=== PATIENT | female | born 1990 | race Caucasian/White ===

== ENCOUNTER 2017-05-08 12:50 | Inpatient (IN) | payer MEDICAID ==
[~2017-05-08] VITALS: Ht 160 cm; Wt 64.9 kg
[2017-05-08] MEDS ORDERED: LACTATED RINGERS 1,000 ML IV SCH (13:55)
[2017-05-08] MEDS ORDERED: DEXT 5%/LR + PITOCIN 20UNITS/L 1,000 ML IV SCH (13:55)
[2017-05-08] MEDS ORDERED: METHYLERGONOVINE MALEATE 0.2 MG/ML IM PRN (14:00)
[2017-05-08] MEDS ORDERED: CARBOPROST TROMETHAMINE 250 MCG/ML AMPUL IM PRN (14:00)
[2017-05-08 14:25] LABS: BASOPHILS % 0.7 % (0.0-2.0); EOSINOPHILS % 0.5 % (0.0-5.0); HEMATOCRIT. 42.2 % (36.0-48.0); HEMOGLOBIN. 14.2 g/dL (12.0-16.0); LYMPHOCYTES % 26.9 % (20.0-50.0); MEAN CORPUSCULAR HEMOGLOBIN 27.7 pg (28.0-32.0); MEAN CORPUSCULAR VOLUME 82.3 fL (81.0-99.0); MEAN PLATELET VOLUME 11.1 fl (7.4-10.4); MONOCYTES % 7.2 % (2.0-8.0); NEUTROPHILS % 64.7 % (40.0-76.0); PLATELET 234 x1000/uL (130-400); RED BLOOD CELL COUNT 5.13 mill/uL (4.2-5.4); RED CELL DISTRIBUTION WIDTH 14.4 % (11.6-14.6)
[2017-05-08 14:25] LABS: CLARITY URINE CLEAR (CLEAR); COLOR URINE YELLOW (YELLOW); KETONES URINE NEGATIVE (NEGATIVE); LEUKOCYTE ESTERASE URINE NEGATIVE (NEGATIVE); NITRITE URINE NEGATIVE (NEGATIVE); OCCULT BLOOD URINE NEGATIVE (NEGATIVE); PH URINE 6.5 (4.5-8.0); PROTEIN URINE NEGATIVE (NEGATIVE); SPECIFIC GRAVITY URINE 1.009 (1.005-1.030); UROBILINOGEN URINE 0.2 E.U./dL (0.2-1.0)
[2017-05-08 14:32] LABS: PARTIAL THROMBOPLASTIN TIME 28.4 sec (23.4-31.0)
[2017-05-08 15:03] LABS: *AMPHETAMINES SCREEN URINE NEGATIVE (NEGATIVE); *BARBITURATES SCREEN URINE NEGATIVE (NEGATIVE); *BENZODIAZEPINES SCREEN URINE NEGATIVE (NEGATIVE); *COCAINE SCREEN URINE NEGATIVE (NEGATIVE); CANNABINOID URINE SCREEN NEGATIVE (NEGATIVE); METHADONE URINE SCREEN NEGATIVE (NEGATIVE); OPIATES URINE SCREEN NEGATIVE (NEGATIVE); PHENCYCLIDINE URINE SCREEN NEGATIVE (NEGATIVE)
[2017-05-08 15:21] LABS: HEPATITIS B SURFACE ANTIGEN NEGATIVE
[2017-05-08 15:25] LABS: RUBELLA IGG > 500.0 IU/mL (4.99-10)
[2017-05-08] MEDS: LACTATED RINGERS 1,000 ML IV SCH ×2 (15:30→18:38)
[2017-05-08] MEDS ORDERED: MORPHINE SULFATE/PF 1MG/ML 10ML AMP ONE (19:25)
[2017-05-08] MEDS ORDERED: GLYCOPYRROLATE 0.2 MG/ML 2ML VIAL ONE (19:46)
[2017-05-08] MEDS ORDERED: ONDANSETRON HCL 4MG/2ML VIAL ONE (19:46)
[2017-05-08] MEDS ORDERED: EPHEDRINE SULFATE 50MG/ML VIAL ONE (20:10)
[2017-05-08] MEDS ORDERED: CEFAZOLIN SODIUM 1000MG/VIAL ONE (20:10)
[2017-05-08] MEDS ORDERED: SODIUM CHLORIDE 0.9% 10ML VIAL ONE (20:10)
[2017-05-08] MEDS ORDERED: OXYTOCIN 10 UNITS/ML 1ML ONE (20:10)
[2017-05-08] MEDS ORDERED: KETOROLAC 30MG/ML VIAL IV PRN (20:15)
[2017-05-08] MEDS ORDERED: ONDANSETRON HCL 4MG/2ML VIAL IV PRN (20:15)
[2017-05-08] MEDS ORDERED: MEPERIDINE HCL/PF 25MG/ML CPJ IV PRN (20:15)
[2017-05-08] MEDS ORDERED: IBUPROFEN 800MG TABLET PO PRN (20:15)
[2017-05-08] MEDS ORDERED: HYDROMORPHONE HCL/PF 2MG/ML CPJ IM PRN (20:15)
[2017-05-08] MEDS ORDERED: RHO(D) IMMUNE GLOBULIN 300 MCG/SYR IM PRN (20:15)
[2017-05-08] MEDS ORDERED: BISACODYL 10MG SUPP PR PRN (20:15)
[2017-05-08] MEDS ORDERED: LABETALOL 5MG/ML SYR 20 MG/4 ML SYRINGE IV PRN (20:15)
[2017-05-08] MEDS ORDERED: HYDROMORPHONE HCL/PF 2MG/ML CPJ IV PRN (20:15)
[2017-05-08] MEDS: DEXT 5%/LR + PITOCIN 20UNITS/L 1,000 ML IV SCH (20:54)
[2017-05-08 23:45] VITALS: BP 96/97
[2017-05-08 23:46] VITALS: BP 126/80
[2017-05-09 00:15] VITALS: BP_SYST 123; BP_SYST 129; BP_DIAS 73; BP_DIAS 74
[2017-05-09 00:45] VITALS: BP 129/74
[2017-05-09] MEDS: DEXT 5%/LR + PITOCIN 20UNITS/L 1,000 ML IV SCH (01:39)
[2017-05-09 01:45] VITALS: BP 115/69
[2017-05-09 09:00] VITALS: BP 99/66
[2017-05-09] MEDS: LACTATED RINGERS 1,000 ML IV SCH (09:13)
[2017-05-09 09:48] LABS: BASOPHILS % 0.5 % (0.0-2.0); HEMATOCRIT. 37.8 % (36.0-48.0); HEMOGLOBIN. 12.5 g/dL (12.0-16.0); LYMPHOCYTES % 11.7 % (20.0-50.0); MEAN CORPUSCULAR HEMOGLOBIN 27.1 pg (28.0-32.0); MEAN PLATELET VOLUME 10.3 fl (7.4-10.4); MONOCYTES % 4.7 % (2.0-8.0); NEUTROPHILS % 83.1 % (40.0-76.0); PLATELET 206 x1000/uL (130-400); RED BLOOD CELL COUNT 4.61 mill/uL (4.2-5.4); RED CELL DISTRIBUTION WIDTH 13.9 % (11.6-14.6)
[2017-05-09 16:28] VITALS: BP 110/66
[2017-05-09 19:30] VITALS: BP 102/68
[2017-05-09] MEDS: ACETAMINOPHEN WITH CODEINE 300/30MG TABLET PO PRN (21:04)
[2017-05-09] MEDS: IBUPROFEN 400MG TABLET PO PRN (21:05)
[2017-05-10] VITALS: BP 112/71
[2017-05-10 04:00] VITALS: BP 118/78
[2017-05-10 05:53] VITALS: BP 112/64
[2017-05-10] MEDS: ACETAMINOPHEN WITH CODEINE 300/30MG TABLET PO PRN ×2 (05:53→13:56)
[2017-05-10] MEDS: IBUPROFEN 400MG TABLET PO PRN (05:54)
[2017-05-10 07:50] VITALS: BP 109/72
[2017-05-10 13:56] VITALS: BP 109/72
== END 2017-05-10 15:00 | disposition home or self-care (01) | DRG 540 ==
LOC: OBSVTOIN 12:50 → L&D 12:50 → UNDOADMOB 12:51 → L&D 18:45 → 7EST PP/OB 23:29
PROVIDERS: ADMIT Obstetrics & Gynecology; ATTEND Obstetrics & Gynecology
PROC: 10D00Z1 Extraction of Products of Conception, Low, Open Approach (ICD-10-PCS; principal; 2017-05-08 20:13)
DX: O34.211 Maternal care for low transverse scar from previous cesarean delivery (principal); Z37.0 Single live birth; Z3A.39 39 weeks gestation of pregnancy
CPT/HCPCS: 36415; 80305; 81003; 85025; 85610; 85730; 86592; 86703; 86762; 86850; 86900; 86920; 87340; 88307; A4216; J0171; J0690; J1885; J2274; J2405; J2590; J3490; J7120; A4315